=== PATIENT | female | born 1945 ===

== ENCOUNTER 2022-03-29 08:51 | Outpatient (CLI) | payer OTHER | END 2022-03-29 08:53 | disposition home or self-care (01) | LOC: LAB 08:51 | PROVIDERS: ATTEND Surgery | DX: C19 Malignant neoplasm of rectosigmoid junction (principal); R19.4 Change in bowel habit ==

== ENCOUNTER 2022-04-01 09:45 | Inpatient (IN) | payer OTHER ==
[~2022-04-01] VITALS: Ht 160 cm; Wt 64.0 kg
[2022-04-01] MEDS ORDERED: GABAPENTIN300 MG (14:17)
[2022-04-01] MEDS ORDERED: SYMBICORT 16010.2 GM IH (14:18)
[2022-04-01] MEDS ORDERED: FOSAMAX70 MG PO (14:18)
[2022-04-01] MEDS ORDERED: PROAIR RESPICL90 MCG IH (14:19)
[2022-04-01] MEDS ORDERED: PANADOL EXTRA500 MG PO (14:19)
[2022-04-01] MEDS ORDERED: TRETAL PO (14:19)
[2022-04-03] MEDS ORDERED: VITAMIN D3250 MCG (13:37)
[2022-04-03] MEDS ORDERED: LEVOTHYROXINE25 MC1 (13:37)
[2022-04-03] MEDS ORDERED: FAMOTIDINE20 MG (13:38)
[2022-04-03] MEDS ORDERED: METFORMIN HCL500 M4 (13:38)
[2022-04-03] MEDS ORDERED: PENTOXIFYLLINE400 MG (13:38)
[2022-04-07] MEDS ORDERED: PROTONIX40 MG PO (09:56)
[2022-04-07] MEDS ORDERED: TRAM1TAB98 PO (09:57)
== END 2022-04-07 12:58 | disposition home or self-care (01) | DRG 327 ==
LOC: EDUNIT# 09:45 → SURG 04-03 08:30 → O/R 04-03 09:48 → SURH 04-03 09:48
PROVIDERS: ADMIT Surgery; ATTEND Surgery
PROC: 0DTN4ZZ Resection of Sigmoid Colon, Percutaneous Endoscopic Approach (ICD-10-PCS; 2022-04-03)
PROC: 0DBP4ZZ Excision of Rectum, Percutaneous Endoscopic Approach (ICD-10-PCS; 2022-04-03)
PROC: 07BC4ZZ Excision of Pelvis Lymphatic, Percutaneous Endoscopic Approach (ICD-10-PCS; 2022-04-03)
PROC: 0DJD8ZZ Inspection of Lower Intestinal Tract, Via Natural or Artificial Opening Endoscopic (ICD-10-PCS; 2022-04-03)
PROC: 3E0F7GC Introduction of Other Therapeutic Substance into Respiratory Tract, Via Natural or Artificial Opening (ICD-10-PCS; 2022-04-03)
PROC: 3E0F7SF Introduction of Other Gas into Respiratory Tract, Via Natural or Artificial Opening (ICD-10-PCS; 2022-04-03)
PROC: 0DB64ZZ Excision of Stomach, Percutaneous Endoscopic Approach (ICD-10-PCS; principal; 2022-04-03 08:30)
DX: C19 Malignant neoplasm of rectosigmoid junction (principal); C16.9 Malignant neoplasm of stomach, unspecified; J98.11 Atelectasis; R19.4 Change in bowel habit; R59.0 Localized enlarged lymph nodes; J44.9 Chronic obstructive pulmonary disease, unspecified